=== PATIENT | male | born 1970 | race Two or more races ===

== ENCOUNTER 2022-10-01 17:33 | Inpatient (IN) | payer OTHER ==
[2022-10-01 18:39] VITALS: BMI 27.4
[2022-10-01] MEDS ORDERED: MAG HYDROX/AL HYDROX/SIMETH 30 ML UNIT-DOSE CUP PO PRN (21:02)
[2022-10-01] MEDS ORDERED: IBUPROFEN 600 MG TABLET (FP) PO PRN (21:02)
[2022-10-01] MEDS ORDERED: LOPERAMIDE HCL 2 MG CAPSULE PO PRN (21:02)
[2022-10-01] MEDS ORDERED: BENZOCAINE/MENTHOL (CHLORASEPTIC ) LOZENGE MM PRN (21:02)
[2022-10-01] MEDS ORDERED: IBUPROFEN 400 MG TABLET (FP) PO PRN (21:02)
[2022-10-01] MEDS ORDERED: hydrOXYzine PAMOATE 25 MG CAPSULE (FP) PO PRN (21:02)
[2022-10-01] MEDS ORDERED: DICYCLOMINE HCL 10 MG CAPSULE PO PRN (21:02)
[2022-10-01] MEDS ORDERED: P-EPHED 60MG/TRIPROLIDI 2.5MG TABLET PO PRN (21:02)
[2022-10-01] MEDS ORDERED: POLYETHYLENE GLYCOL (HEALTHYLAX) 3350 17 GM PACKET PO PRN (21:02)
[2022-10-01] MEDS ORDERED: ACETAMINOPHEN 325 MG TABLET (FP) PO PRN ×2 (21:02)
[2022-10-01] MEDS ORDERED: guaiFENesin 200 MG/10 ML 10 ML UNIT-DOSE CUPS PO PRN (21:02)
[2022-10-01] MEDS ORDERED: MAGNESIUM HYDROX 2400MG/30ML ORAL SUSPENSION 30 ML CUP PO PRN (21:02)
[2022-10-01] MEDS ORDERED: BISMUTH SUBSALICYLATE 524 MG/30 ML PO PRN (21:02)
[2022-10-01] MEDS ORDERED: ONDANSETRON *ODT* 4 MG TABLET SL PRN (21:02)
[2022-10-01] MEDS ORDERED: chlordiazePOXIDE HCL 25 MG CAPSULE PO PRN (21:04)
[2022-10-01] MEDS: chlordiazePOXIDE HCL 25 MG CAPSULE PO SCH (22:08)
[2022-10-01] MEDS: METHOCARBAMOL 500 MG TABLET PO PRN (22:11)
[2022-10-01] MEDS: THIAMINE HCL 100 MG TABLET (FP) PO SCH (22:14)
[2022-10-02] MEDS: chlordiazePOXIDE HCL 25 MG CAPSULE PO SCH ×4 (05:11→22:11)
[2022-10-02] MEDS: PRENATAL VITAMINS W/ FOLIC ACID TABLET (FP) PO SCH (10:02)
[2022-10-02 10:58] LABS: HEMATOCRIT 40.3 % (35.4-49); HEMOGLOBIN 13.5 GM/dL (11.7-16.9); MCH 33.5 pg (25.7-33.7); MCHC 33.5 g/dl (32.0-35.9); MEAN CELL VOLUME 99.9 fl (80-96); MEAN PLT VOLUME 7.9 fl (7.5-11.1); PLATELET COUNT 156 10^3/uL (134-434); RBC 4.03 M/mm3 (4.00-5.60); RDW 13.6 % (11.9-15.9); WHITE BLOOD COUNT 6.2 K/mm3 (4.0-10.0)
[2022-10-02 11:33] LABS: CALCIUM 8.8 mg/dL (8.5-10.1)
[2022-10-02 11:34] LABS: ALBUMIN 3.9 g/dl (3.4-5.0)
[2022-10-02 11:37] LABS: CREATININE 0.8 mg/dL (0.55-1.3)
[2022-10-02 11:38] LABS: BILIRUBIN,TOTAL 0.6 mg/dL (0.2-1)
[2022-10-02 11:39] LABS: TOT PROT 7.1 g/dl (6.4-8.2)
[2022-10-02] MEDS: METHOCARBAMOL 500 MG TABLET PO PRN (17:38)
[2022-10-02] MEDS: THIAMINE HCL 100 MG TABLET (FP) PO SCH (22:11)
[2022-10-02] MEDS: MELATONIN 5 MG TABLETS PO PRN (22:11)
[2022-10-03] MEDS: chlordiazePOXIDE HCL 25 MG CAPSULE PO SCH ×2 (05:16→10:05)
[2022-10-03] MEDS: PRENATAL VITAMINS W/ FOLIC ACID TABLET (FP) PO SCH (10:05)
[2022-10-03] MEDS: METHOCARBAMOL 500 MG TABLET PO PRN (10:08)
[2022-10-03] MEDS ORDERED: LORazepam 1 MG TABLET PO PRN (11:13)
[2022-10-03] MEDS: LORazepam 1 MG TABLET PO SCH ×2 (17:40→22:17)
[2022-10-03] MEDS: NICOTINE 10 MG CARTRIDGE (INHALER) IH PRN ×2 (18:56→22:59)
[2022-10-03] MEDS: THIAMINE HCL 100 MG TABLET (FP) PO SCH (21:49)
[2022-10-03] MEDS: MELATONIN 5 MG TABLETS PO PRN (21:51)
[2022-10-04] MEDS ORDERED: chlordiazePOXIDE HCL 10 MG CAPSULE PO PRN
[2022-10-04] MEDS ORDERED: chlordiazePOXIDE HCL 10 MG CAPSULE PO SCH (05:00)
[2022-10-04] MEDS: LORazepam 0.5 MG TABLET PO SCH ×4 (05:19→22:03)
[2022-10-04] MEDS: METHOCARBAMOL 500 MG TABLET PO PRN ×2 (05:54→17:26)
[2022-10-04] MEDS: PRENATAL VITAMINS W/ FOLIC ACID TABLET (FP) PO SCH (10:11)
[2022-10-04] MEDS: NICOTINE 10 MG CARTRIDGE (INHALER) IH PRN ×2 (10:16→16:42)
[2022-10-04] MEDS: MELATONIN 5 MG TABLETS PO PRN (21:36)
[2022-10-04] MEDS: THIAMINE HCL 100 MG TABLET (FP) PO SCH (21:36)
[2022-10-05] MEDS ORDERED: LORazepam 0.5 MG TABLET PO PRN
[2022-10-05] MEDS ORDERED: LORazepam 0.5 MG TABLET PO ONE (05:00)
[2022-10-05] MEDS ORDERED: chlordiazePOXIDE HCL 10 MG CAPSULE PO SCH (05:00)
[2022-10-05 06:15] VITALS: RESP 18
[2022-10-05] MEDS: PRENATAL VITAMINS W/ FOLIC ACID TABLET (FP) PO SCH (09:30)
[2022-10-05] MEDS: METHOCARBAMOL 500 MG TABLET PO PRN (09:31)
[2022-10-05 09:33] VITALS: BP 138/96; PULSE 98; TEMP 97.1
[2022-10-05 11:24] LABS: BILIRUBIN,DIRECT 0.2 mg/dL (0.0-0.2)
[2022-10-06] MEDS ORDERED: chlordiazePOXIDE HCL 10 MG CAPSULE PO ONE (05:00)
== END 2022-10-05 10:17 | disposition home or self-care (01) | DRG 775 ==
LOC: YASAS 17:33 → Y3N 21:40
PROVIDERS: ADMIT Allergy & Immunology; ATTEND Family Medicine
PROC: HZ2ZZZZ Detoxification Services for Substance Abuse Treatment (ICD-10-PCS; principal; 2022-10-01)
DX: F10.230 Alcohol dependence with withdrawal, uncomplicated (principal); F17.290 Nicotine dependence, other tobacco product, uncomplicated; R73.9 Hyperglycemia, unspecified; R74.8 Abnormal levels of other serum enzymes; Z28.310 Unvaccinated for COVID-19; Z28.9 Immunization not carried out for unspecified reason
CPT/HCPCS: 36415; 80053; 80076; 82962; 85027; 86780; C9803-CS; Q0162; U0003; U0005

== ENCOUNTER 2022-10-25 19:02 | Emergency (ER) | payer OTHER ==
[2022-10-25 19:08] VITALS: BP 140/83; PULSE 95; RESP 18; TEMP 97.6; BMI 27.7
== END 2022-10-25 22:23 | disposition left against medical advice (07) ==
LOC: JERFT 19:02
DX: F10.10 Alcohol abuse, uncomplicated (principal)
CPT/HCPCS: 99283-25

== ENCOUNTER 2022-10-26 11:09 | Inpatient (IN) | payer OTHER ==
[2022-10-26 11:41] VITALS: BMI 23.6
[2022-10-26] MEDS ORDERED: IBUPROFEN 600 MG TABLET (FP) PO PRN (12:32)
[2022-10-26] MEDS ORDERED: POLYETHYLENE GLYCOL (HEALTHYLAX) 3350 17 GM PACKET PO PRN (12:32)
[2022-10-26] MEDS ORDERED: LOPERAMIDE HCL 2 MG CAPSULE PO PRN (12:32)
[2022-10-26] MEDS ORDERED: MAG HYDROX/AL HYDROX/SIMETH 30 ML UNIT-DOSE CUP PO PRN (12:32)
[2022-10-26] MEDS ORDERED: ONDANSETRON *ODT* 4 MG TABLET SL PRN (12:32)
[2022-10-26] MEDS ORDERED: ACETAMINOPHEN 325 MG TABLET (FP) PO PRN ×2 (12:32)
[2022-10-26] MEDS ORDERED: BISMUTH SUBSALICYLATE 262 MG/15 ML BTL PO PRN (12:32)
[2022-10-26] MEDS ORDERED: IBUPROFEN 400 MG TABLET (FP) PO PRN (12:32)
[2022-10-26] MEDS ORDERED: chlordiazePOXIDE HCL 25 MG CAPSULE PO PRN (12:32)
[2022-10-26] MEDS ORDERED: BENZOCAINE/MENTHOL (CHLORASEPTIC ) LOZENGE MM PRN (12:32)
[2022-10-26] MEDS ORDERED: DICYCLOMINE HCL 10 MG CAPSULE PO PRN (12:32)
[2022-10-26] MEDS ORDERED: MAGNESIUM HYDROX 2400MG/30ML ORAL SUSPENSION 30 ML CUP PO PRN (12:32)
[2022-10-26] MEDS ORDERED: TRIMETHOBENZAMIDE HCL 200MG/2ML INJ IM PRN (12:38)
[2022-10-26] MEDS ORDERED: chlordiazePOXIDE HCL 25 MG CAPSULE ONE (13:47)
[2022-10-26] MEDS ORDERED: ONDANSETRON *ODT* 4 MG TABLET ONE (13:48)
[2022-10-26] MEDS: hydrOXYzine PAMOATE 25 MG CAPSULE (FP) PO PRN (14:43)
[2022-10-26] MEDS: METHOCARBAMOL 500 MG TABLET PO PRN (14:43)
[2022-10-26] MEDS: chlordiazePOXIDE HCL 25 MG CAPSULE PO SCH ×2 (17:55→22:06)
[2022-10-26] MEDS: FAMOTIDINE 20 MG TABLET PO SCH (22:05)
[2022-10-26] MEDS: THIAMINE HCL 100 MG TABLET (FP) PO SCH (22:05)
[2022-10-26] MEDS: MELATONIN 5 MG TABLETS PO SCH (22:05)
[2022-10-27] MEDS: chlordiazePOXIDE HCL 25 MG CAPSULE PO SCH ×4 (05:53→23:03)
[2022-10-27] MEDS: PRENATAL VITAMINS W/ FOLIC ACID TABLET (FP) PO SCH (10:38)
[2022-10-27] MEDS: FAMOTIDINE 20 MG TABLET PO SCH ×2 (10:38→21:51)
[2022-10-27 12:28] LABS: HEMATOCRIT 37.8 % (35.4-49); HEMOGLOBIN 12.9 GM/dL (11.7-16.9); MCH 33.7 pg (25.7-33.7); MCHC 34.2 g/dl (32.0-35.9); MEAN CELL VOLUME 98.6 fl (80-96); MEAN PLT VOLUME 9.1 fl (7.5-11.1); PLATELET COUNT 80 10^3/uL (134-434); RBC 3.83 M/mm3 (4.00-5.60); RDW 13.6 % (11.9-15.9); WHITE BLOOD COUNT 5.1 K/mm3 (4.0-10.0)
[2022-10-27 12:55] LABS: BLOOD UREA NITROGEN 10.6 mg/dL (7-18)
[2022-10-27 12:56] LABS: ALBUMIN 3.6 g/dl (3.4-5.0); CALCIUM 8.9 mg/dL (8.5-10.1); CREATININE 0.9 mg/dL (0.55-1.3)
[2022-10-27 12:58] LABS: BILIRUBIN,TOTAL 1.3 mg/dL (0.2-1); TOT PROT 6.5 g/dl (6.4-8.2)
[2022-10-27] MEDS: METHOCARBAMOL 500 MG TABLET PO PRN (17:52)
[2022-10-27] MEDS: hydrOXYzine PAMOATE 25 MG CAPSULE (FP) PO PRN ×2 (17:52→21:52)
[2022-10-27] MEDS: MELATONIN 5 MG TABLETS PO SCH (21:51)
[2022-10-27] MEDS: THIAMINE HCL 100 MG TABLET (FP) PO SCH (21:51)
[2022-10-28] MEDS ORDERED: chlordiazePOXIDE HCL 25 MG CAPSULE PO SCH (05:00)
[2022-10-28] MEDS ORDERED: LORazepam 1 MG TABLET PO PRN (09:08)
[2022-10-28] MEDS: FAMOTIDINE 20 MG TABLET PO SCH ×2 (10:53→21:46)
[2022-10-28] MEDS: LORazepam 2 MG TABLET PO SCH ×3 (10:54→22:32)
[2022-10-28] MEDS: PRENATAL VITAMINS W/ FOLIC ACID TABLET (FP) PO SCH (10:54)
[2022-10-28] MEDS: MELATONIN 5 MG TABLETS PO SCH (21:45)
[2022-10-28] MEDS: THIAMINE HCL 100 MG TABLET (FP) PO SCH (21:45)
[2022-10-28] MEDS: METHOCARBAMOL 500 MG TABLET PO PRN (21:46)
[2022-10-29] MEDS ORDERED: chlordiazePOXIDE HCL 10 MG CAPSULE PO PRN
[2022-10-29] MEDS ORDERED: chlordiazePOXIDE HCL 10 MG CAPSULE PO SCH (05:00)
[2022-10-29] MEDS: LORazepam 1 MG TABLET PO SCH ×4 (06:12→22:06)
[2022-10-29] MEDS: PRENATAL VITAMINS W/ FOLIC ACID TABLET (FP) PO SCH (10:39)
[2022-10-29] MEDS: FAMOTIDINE 20 MG TABLET PO SCH ×2 (10:39→21:56)
[2022-10-29] MEDS: THIAMINE HCL 100 MG TABLET (FP) PO SCH (21:56)
[2022-10-29] MEDS: MELATONIN 5 MG TABLETS PO SCH (21:56)
[2022-10-29] MEDS: hydrOXYzine PAMOATE 25 MG CAPSULE (FP) PO PRN (21:56)
[2022-10-30] MEDS ORDERED: LORazepam 0.5 MG TABLET PO PRN
[2022-10-30] MEDS ORDERED: chlordiazePOXIDE HCL 10 MG CAPSULE PO SCH (05:00)
[2022-10-30] MEDS: LORazepam 0.5 MG TABLET PO SCH ×2 (05:47→10:47)
[2022-10-30 10:30] VITALS: BP 128/85; PULSE 105; RESP 20; TEMP 97.1
[2022-10-30] MEDS: PRENATAL VITAMINS W/ FOLIC ACID TABLET (FP) PO SCH (10:46)
[2022-10-30] MEDS: FAMOTIDINE 20 MG TABLET PO SCH (10:47)
[2022-10-31] MEDS ORDERED: chlordiazePOXIDE HCL 10 MG CAPSULE PO ONE (05:00)
[2022-10-31] MEDS ORDERED: LORazepam 0.5 MG TABLET PO ONE (05:00)
== END 2022-10-30 12:24 | disposition left against medical advice (07) | DRG 770 ==
LOC: YASAS 11:09 → Y6N 13:56
PROVIDERS: ADMIT Allergy & Immunology; ATTEND Surgery
PROC: HZ2ZZZZ Detoxification Services for Substance Abuse Treatment (ICD-10-PCS; principal; 2022-10-26)
DX: F10.230 Alcohol dependence with withdrawal, uncomplicated (principal); F17.290 Nicotine dependence, other tobacco product, uncomplicated; U07.1 COVID-19; K21.9 Gastro-esophageal reflux disease without esophagitis; Z86.19 Personal history of other infectious and parasitic diseases
CPT/HCPCS: 36415; 80053; 83036; 84450; 85027; 86780; C9803-CS; Q0162; U0003; U0005

== ENCOUNTER 2023-07-07 11:29 | Inpatient (IN) | payer OTHER ==
[2023-07-07 11:51] VITALS: BMI 26.4
[2023-07-07] MEDS ORDERED: NALOXONE HCL (KLOXXADO) 8 MG SPRAY NS PRN (12:11)
[2023-07-07] MEDS ORDERED: ONDANSETRON *ODT* 4 MG TABLET SL PRN (12:11)
[2023-07-07] MEDS ORDERED: MAG HYDROX/AL HYDROX/SIMETH 30 ML UNIT-DOSE CUP PO PRN (12:11)
[2023-07-07] MEDS ORDERED: MAGNESIUM HYDROX 2400MG/30ML ORAL SUSPENSION 30 ML CUP PO PRN (12:11)
[2023-07-07] MEDS ORDERED: BISMUTH SUBSALICYLATE 524 MG/30 ML PO PRN (12:11)
[2023-07-07] MEDS ORDERED: POLYETHYLENE GLYCOL (HEALTHYLAX) 3350 17 GM PACKET PO PRN (12:11)
[2023-07-07] MEDS ORDERED: LOPERAMIDE HCL 2 MG CAPSULE PO PRN (12:11)
[2023-07-07] MEDS ORDERED: IBUPROFEN 400 MG TABLET (FP) PO PRN (12:11)
[2023-07-07] MEDS ORDERED: chlordiazePOXIDE HCL 25 MG CAPSULE PO PRN (12:11)
[2023-07-07] MEDS ORDERED: DICYCLOMINE HCL 10 MG CAPSULE PO PRN (12:11)
[2023-07-07] MEDS ORDERED: IBUPROFEN 600 MG TABLET (FP) PO PRN (12:11)
[2023-07-07] MEDS ORDERED: guaiFENesin 600 MG TABLET.ER (FP) PO PRN (12:11)
[2023-07-07] MEDS ORDERED: BENZONATATE 200 MG CAPSULE PO PRN (12:11)
[2023-07-07] MEDS ORDERED: BENZOCAINE/MENTHOL (CHLORASEPTIC ) LOZENGE MM PRN (12:11)
[2023-07-07] MEDS ORDERED: NALOXONE HCL 0.4 MG/ML VIAL IM PRN (12:11)
[2023-07-07] MEDS ORDERED: ACETAMINOPHEN 325 MG TABLET (FP) PO PRN (12:11)
[2023-07-07] MEDS ORDERED: PRENATAL VITAMINS W/ FOLIC ACID TABLET (FP) PO ONE (12:35)
[2023-07-07] MEDS: PRENATAL VITAMINS W/ FOLIC ACID TABLET (FP) PO SCH (12:45)
[2023-07-07] MEDS: PANTOPRAZOLE 40 MG TABLET PO SCH (12:45)
[2023-07-07] MEDS: chlordiazePOXIDE HCL 25 MG CAPSULE PO SCH ×2 (17:35→22:02)
[2023-07-07] MEDS: hydrOXYzine PAMOATE 25 MG CAPSULE (FP) PO PRN ×2 (17:35→22:02)
[2023-07-07] MEDS ORDERED: MELATONIN 5 MG TABLETS PO SCH (22:00)
[2023-07-07] MEDS: THIAMINE HCL 100 MG TABLET (FP) PO SCH (22:02)
[2023-07-08] MEDS: chlordiazePOXIDE HCL 25 MG CAPSULE PO SCH ×4 (05:21→22:17)
[2023-07-08] MEDS: hydrOXYzine PAMOATE 25 MG CAPSULE (FP) PO PRN ×2 (05:56→19:02)
[2023-07-08] MEDS: PRENATAL VITAMINS W/ FOLIC ACID TABLET (FP) PO SCH (09:58)
[2023-07-08] MEDS: PANTOPRAZOLE 40 MG TABLET PO SCH (09:59)
[2023-07-08] MEDS: METHOCARBAMOL 500 MG TABLET PO PRN ×2 (10:03→22:19)
[2023-07-08 10:33] LABS: POTASSIUM 3.8 mmol/L (3.5-5.1)
[2023-07-08 10:36] LABS: BLOOD UREA NITROGEN 6.8 mg/dL (7-18); CALCIUM 8.6 mg/dL (8.5-10.1); HEMATOCRIT 41.6 % (35.4-49); HEMOGLOBIN 14.5 GM/dL (11.7-16.9); MCH 33.7 pg (25.7-33.7); MCHC 34.9 g/dl (32.0-35.9); MEAN CELL VOLUME 96.6 fl (80-96); MEAN PLT VOLUME 7.8 fl (7.5-11.1); PLATELET COUNT 206 10^3/uL (134-434); RBC 4.31 M/mm3 (4.00-5.60); RDW 13.1 % (11.9-15.9); WHITE BLOOD COUNT 5.8 K/mm3 (4.0-10.0)
[2023-07-08 10:40] LABS: CREATININE 0.7 mg/dL (0.55-1.3)
[2023-07-08 10:41] LABS: TOT PROT 7.1 g/dl (6.4-8.2)
[2023-07-08 10:42] LABS: BILIRUBIN,TOTAL 0.7 mg/dL (0.2-1)
[2023-07-08] MEDS: THIAMINE HCL 100 MG TABLET (FP) PO SCH (22:16)
[2023-07-08] MEDS: FAMOTIDINE 20 MG TABLET PO SCH (22:18)
[2023-07-08] MEDS: SUVOREXANT 10 MG TABLET PO PRN (22:18)
[2023-07-09] MEDS: chlordiazePOXIDE HCL 25 MG CAPSULE PO SCH ×4 (05:19→22:06)
[2023-07-09] MEDS: hydrOXYzine PAMOATE 25 MG CAPSULE (FP) PO PRN ×2 (07:21→15:21)
[2023-07-09] MEDS: FAMOTIDINE 20 MG TABLET PO SCH ×2 (09:55→22:06)
[2023-07-09] MEDS: PANTOPRAZOLE 40 MG TABLET PO SCH (09:55)
[2023-07-09] MEDS: PRENATAL VITAMINS W/ FOLIC ACID TABLET (FP) PO SCH (09:55)
[2023-07-09] MEDS: METHOCARBAMOL 500 MG TABLET PO PRN ×2 (10:02→22:06)
[2023-07-09] MEDS: THIAMINE HCL 100 MG TABLET (FP) PO SCH (22:06)
[2023-07-09] MEDS: SUVOREXANT 10 MG TABLET PO PRN (22:06)
[2023-07-10] MEDS ORDERED: chlordiazePOXIDE HCL 10 MG CAPSULE PO PRN
[2023-07-10] MEDS: chlordiazePOXIDE HCL 10 MG CAPSULE PO SCH ×4 (05:56→22:09)
[2023-07-10] MEDS: hydrOXYzine PAMOATE 25 MG CAPSULE (FP) PO PRN ×2 (06:10→13:58)
[2023-07-10] MEDS: FAMOTIDINE 20 MG TABLET PO SCH ×2 (10:12→22:09)
[2023-07-10] MEDS: PANTOPRAZOLE 40 MG TABLET PO SCH (10:12)
[2023-07-10] MEDS: PRENATAL VITAMINS W/ FOLIC ACID TABLET (FP) PO SCH (10:12)
[2023-07-10] MEDS: METHOCARBAMOL 500 MG TABLET PO PRN ×2 (12:27→22:12)
[2023-07-10] MEDS: THIAMINE HCL 100 MG TABLET (FP) PO SCH (22:09)
[2023-07-10] MEDS: SUVOREXANT 10 MG TABLET PO PRN (22:10)
[2023-07-11] MEDS: hydrOXYzine PAMOATE 25 MG CAPSULE (FP) PO PRN ×3 (05:32→17:04)
[2023-07-11] MEDS: chlordiazePOXIDE HCL 10 MG CAPSULE PO SCH ×2 (05:32→17:04)
[2023-07-11] MEDS: PRENATAL VITAMINS W/ FOLIC ACID TABLET (FP) PO SCH (09:49)
[2023-07-11] MEDS: METHOCARBAMOL 500 MG TABLET PO PRN ×2 (09:52→20:05)
[2023-07-11] MEDS: FAMOTIDINE 20 MG TABLET PO SCH ×2 (09:52→21:07)
[2023-07-11] MEDS: PANTOPRAZOLE 40 MG TABLET PO SCH (09:52)
[2023-07-11] MEDS: SUVOREXANT 10 MG TABLET PO PRN (21:07)
[2023-07-11] MEDS: THIAMINE HCL 100 MG TABLET (FP) PO SCH (21:07)
[2023-07-12] MEDS ORDERED: chlordiazePOXIDE HCL 10 MG CAPSULE PO ONE (05:00)
[2023-07-12] MEDS: hydrOXYzine PAMOATE 25 MG CAPSULE (FP) PO PRN (05:36)
[2023-07-12 06:53] VITALS: RESP 18
[2023-07-12 09:18] VITALS: BP 137/95; PULSE 94; TEMP 97.1
[2023-07-12] MEDS: FAMOTIDINE 20 MG TABLET PO SCH (09:29)
[2023-07-12] MEDS: PANTOPRAZOLE 40 MG TABLET PO SCH (09:29)
[2023-07-12] MEDS: PRENATAL VITAMINS W/ FOLIC ACID TABLET (FP) PO SCH (09:29)
== END 2023-07-12 10:00 | disposition home or self-care (01) | DRG 775 ==
LOC: YASAS 11:29 → Y6N 12:23
PROVIDERS: ADMIT Allergy & Immunology; ATTEND Surgery
PROC: HZ2ZZZZ Detoxification Services for Substance Abuse Treatment (ICD-10-PCS; principal; 2023-07-07)
DX: F10.230 Alcohol dependence with withdrawal, uncomplicated (principal); F10.282 Alcohol dependence with alcohol-induced sleep disorder; K21.9 Gastro-esophageal reflux disease without esophagitis; Z87.891 Personal history of nicotine dependence; Z86.19 Personal history of other infectious and parasitic diseases
CPT/HCPCS: 36415; 80053; 80307; 85027; 86780; 87635; 87811

== ENCOUNTER 2023-07-21 21:40 | Inpatient (IN) | payer OTHER ==
[2023-07-21 22:26] VITALS: BMI 26.6
[2023-07-21] MEDS ORDERED: BISMUTH SUBSALICYLATE 524 MG/30 ML PO PRN (22:47)
[2023-07-21] MEDS ORDERED: ACETAMINOPHEN 325 MG TABLET (FP) PO PRN (22:47)
[2023-07-21] MEDS ORDERED: BENZOCAINE/MENTHOL (CHLORASEPTIC ) LOZENGE MM PRN (22:47)
[2023-07-21] MEDS ORDERED: MAGNESIUM HYDROX 2400MG/30ML ORAL SUSPENSION 30 ML CUP PO PRN (22:47)
[2023-07-21] MEDS ORDERED: guaiFENesin 600 MG TABLET.ER (FP) PO PRN (22:47)
[2023-07-21] MEDS ORDERED: NALOXONE HCL 0.4 MG/ML VIAL IM PRN (22:47)
[2023-07-21] MEDS ORDERED: BENZONATATE 200 MG CAPSULE PO PRN (22:47)
[2023-07-21] MEDS ORDERED: POLYETHYLENE GLYCOL (HEALTHYLAX) 3350 17 GM PACKET PO PRN (22:47)
[2023-07-21] MEDS ORDERED: IBUPROFEN 600 MG TABLET (FP) PO PRN (22:47)
[2023-07-21] MEDS ORDERED: LOPERAMIDE HCL 2 MG CAPSULE PO PRN (22:47)
[2023-07-21] MEDS ORDERED: NALOXONE HCL (KLOXXADO) 8 MG SPRAY NS PRN (22:47)
[2023-07-21] MEDS ORDERED: MAG HYDROX/AL HYDROX/SIMETH 30 ML UNIT-DOSE CUP PO PRN (22:47)
[2023-07-21] MEDS ORDERED: NICOTINE POLACRILEX 2 MG GUM BUC PRN (22:47)
[2023-07-21] MEDS ORDERED: ONDANSETRON *ODT* 4 MG TABLET SL PRN (22:47)
[2023-07-21] MEDS ORDERED: IBUPROFEN 400 MG TABLET (FP) PO PRN (22:47)
[2023-07-22] MEDS: hydrOXYzine PAMOATE 25 MG CAPSULE (FP) PO PRN ×2 (10:05→22:07)
[2023-07-22] MEDS: PRENATAL VITAMINS W/ FOLIC ACID TABLET (FP) PO SCH (10:05)
[2023-07-22] MEDS: METHOCARBAMOL 500 MG TABLET PO PRN ×2 (10:06→22:07)
[2023-07-22 12:02] LABS: CHLORIDE 100 mmol/L (98-107); POTASSIUM 4.3 mmol/L (3.5-5.1); SODIUM 136 mmol/L (136-145)
[2023-07-22 12:06] LABS: HEMATOCRIT 41.2 % (35.4-49); HEMOGLOBIN 14.1 GM/dL (11.7-16.9); MCH 32.4 pg (25.7-33.7); MCHC 34.2 g/dl (32.0-35.9); MEAN CELL VOLUME 94.7 fl (80-96); MEAN PLT VOLUME 7.2 fl (7.5-11.1); PLATELET COUNT 336 10^3/uL (134-434); RBC 4.35 M/mm3 (4.00-5.60); WHITE BLOOD COUNT 5.6 K/mm3 (4.0-10.0)
[2023-07-22 12:11] LABS: ALBUMIN 4.1 g/dl (3.4-5.0); CREATININE 0.7 mg/dL (0.55-1.3); GLUCOSE,RANDOM 100 mg/dL (74-106); SGPT/ALT 26 U/L (13-61)
[2023-07-22 12:12] LABS: CALCIUM 9.3 mg/dL (8.5-10.1)
[2023-07-22 12:13] LABS: ANION GAP 8 mmol/L (4-13); BILIRUBIN,TOTAL 0.4 mg/dL (0.2-1); CO2 28 mmol/L (21-32); TOT PROT 7.3 g/dl (6.4-8.2)
[2023-07-22 12:14] LABS: ALK PHOS 55 U/L (45-117)
[2023-07-22 12:15] LABS: BLOOD UREA NITROGEN 9.8 mg/dL (7-18); SGOT/AST 24 U/L (15-37)
[2023-07-22] MEDS ORDERED: diazePAM 5 MG TABLET PO PRN (15:09)
[2023-07-22] MEDS: diazePAM 5 MG TABLET PO SCH ×2 (17:29→22:07)
[2023-07-22] MEDS: THIAMINE HCL 100 MG TABLET (FP) PO SCH (22:07)
[2023-07-22] MEDS: MELATONIN 5 MG TABLETS PO SCH (22:07)
[2023-07-23] MEDS: diazePAM 5 MG TABLET PO SCH ×4 (05:31→22:11)
[2023-07-23] MEDS: PRENATAL VITAMINS W/ FOLIC ACID TABLET (FP) PO SCH (10:08)
[2023-07-23] MEDS: hydrOXYzine PAMOATE 25 MG CAPSULE (FP) PO PRN (10:11)
[2023-07-23] MEDS: THIAMINE HCL 100 MG TABLET (FP) PO SCH (22:11)
[2023-07-23] MEDS: MELATONIN 5 MG TABLETS PO SCH (22:11)
[2023-07-23] MEDS: METHOCARBAMOL 500 MG TABLET PO PRN (22:12)
[2023-07-24] MEDS: diazePAM 5 MG TABLET PO SCH ×3 (05:00→22:03)
[2023-07-24] MEDS: PRENATAL VITAMINS W/ FOLIC ACID TABLET (FP) PO SCH (10:06)
[2023-07-24] MEDS: hydrOXYzine PAMOATE 25 MG CAPSULE (FP) PO PRN (10:08)
[2023-07-24] MEDS: METHOCARBAMOL 500 MG TABLET PO PRN ×2 (10:10→22:03)
[2023-07-24] MEDS: MELATONIN 5 MG TABLETS PO SCH (22:03)
[2023-07-24] MEDS: THIAMINE HCL 100 MG TABLET (FP) PO SCH (22:03)
[2023-07-25] MEDS: diazePAM 5 MG TABLET PO SCH ×2 (05:08→17:52)
[2023-07-25] MEDS: PRENATAL VITAMINS W/ FOLIC ACID TABLET (FP) PO SCH (09:42)
[2023-07-25] MEDS: hydrOXYzine PAMOATE 25 MG CAPSULE (FP) PO PRN (17:26)
[2023-07-25] MEDS: MELATONIN 5 MG TABLETS PO SCH (22:14)
[2023-07-25] MEDS: THIAMINE HCL 100 MG TABLET (FP) PO SCH (22:14)
[2023-07-26] MEDS ORDERED: diazePAM 5 MG TABLET PO ONE (06:00)
[2023-07-26 09:07] VITALS: BP 127/85; PULSE 99; RESP 18; TEMP 96.9
== END 2023-07-26 09:17 | disposition home or self-care (01) | DRG 775 ==
LOC: YASAS 21:40 → Y3N 23:09
PROVIDERS: ADMIT Allergy & Immunology; ATTEND Surgery
PROC: HZ2ZZZZ Detoxification Services for Substance Abuse Treatment (ICD-10-PCS; principal; 2023-07-21)
DX: F10.230 Alcohol dependence with withdrawal, uncomplicated (principal); F12.20 Cannabis dependence, uncomplicated; F17.210 Nicotine dependence, cigarettes, uncomplicated; K21.9 Gastro-esophageal reflux disease without esophagitis; Z86.19 Personal history of other infectious and parasitic diseases
CPT/HCPCS: 36415; 80053; 80307; 85027; 86780; 87635; Q0162